=== PATIENT | female | born 1955 | race Caucasian/White ===

== ENCOUNTER 2017-01-01 16:11 | Emergency (ER) | payer SELFPAY ==
[2017-01-01 16:19] VITALS: BP 140/85; PULSE 70; RESP 16; O2SAT 100
--- NOTE | 2017-01-01 17:57 | ED.REPORT ---
HPI-Extremity Problem Upper Date of Service Jan 01, 2017 ED Provider: Terence Sands MD 61 year old female with no significant past medical history presents to the ER with L arm pain/swelling onset 4 days ago at 1730 following a fall. Pt states that she was at the fridge when she stood up quickly, became lightheaded and fell backwards on her L elbow. Since then she has noticed increased bruising and swelling. The swelling has increased to the L hand. She only reports mild pain and has been able to move the L arm with minimal pain. She has minimal paresthesias to the arm which she has been icing. No LOC or head trauma. Pt has had no falls since. Pt denies vomiting, diarrhea, fever, chills, CP and SOB. Nursing Notes Stated Complaint: LEFT ARM SWELLING/INJURY Chief Complaint: General Complaint Nursing Notes Reviewed: Yes Allergies: Uncoded Allergies: ASPRIN (Allergy, Mild, epistaxs, 01/01/17) Scheduled PRN Hydrocodone-Acetaminophen 5-325 mg (Hydrocodone-Acetaminophen 5-325 mg) 1 Each Tablet 1 TABLET PO Q4H PRN PRN For Pain General Time Seen by MD: 17:54 Chief Complaint Elbow injury left Hx Obtained From: Patient Arrived By: Walk-in Onset Occurred: 4 days ago Symptom Duration: Since onset Location: : Elbow left Quality: Painful Severity: Current: Mild Associated with: Reports: Swelling, Denies: Loss of consciousness, Unable to move joint Past Medical History Past Medical History denies Denies: Diabetes mellitus, Hypertension Past Surgical History denies Smoking History Unknown if Ever Smoker Social History Alcohol Use: "Social" Other Social History: Smokeless tobacco Review of Systems Basic Review of Systems Eyes: Vision NL, No discharge ENT: Hearing NL, No pain, No nasal congestion, No pharyngeal pain Respiratory: No shortness of breath, No cough, No wheeze Cardiovascular: No chest pain, No dyspnea on exertion, No orthopnea, No parox noct dyspnea, No palpitations GI: No abdominal pain, No anorexia, No nausea, No vomiting Psychiatric: Normal thought content Constitutional: Denies: Chills, Fever Musculoskeletal: Reports: Joint pain, Joint swelling, Denies: Neck pain Skin: Reports Bruising, Reports Swelling Neurologic: Reports: Lightheaded, Denies: Change LOC, Headache, Numbness, Weakness Complete sys rev & neg: except as marked. Physical Exam Initial Vital Signs Vital Signs (First) Date Time Temp Pulse Resp B/P Pulse Ox O2 Delivery O2 Flow Rate FiO2 01/01/17 16:19 36.5 70 16 140/85 100 Room Air Initial VS: Reviewed ENT: Conjunctiva normal, No scleral icterus Abdomen / GI: Soft, Non-tender Lower Extremities: Vascular intact, Neuro intact, No swelling, No tenderness (Atraumatic) Psychiatric: Mood/affect normal, Behavior normal, Normal thought content General/Constitutional: Awake, Alert, Cooperative Neck: Atraumatic, Supple, Full range of motion, No midline vertebral tend (No deformity ) Respiratory / Chest: Breath sounds NL, Breath sounds = bilat, No respiratory distress, No rales, No rhonchi, No wheezing Cardiovascular: Heart rate NL, Regular rhythm, Heart sounds NL, No gallop, No murmurs, No rubs, Cap refill not delayed, Peripheral circulation NL (radial) RUE atraumatic, LUE significant ecchymosis of L elbow. Superficial abrasion but otherwise skin is intact. Significant edema involving entire left elbow toward L forearm. Appears to be in process of resolving. FROM of fingers. Strong radial pulses. Good strength to L hand and forearm. Compartments nl. Sensation nl. No tenderness or deformity to hand, forearm, elbow or upper arm. Skin: Warm, Dry Neurologic: Oriented X3, Speech NL, No motor deficits, No sensory deficits Head / Eyes: Atraumatic (No signs of trauma to head, face or scalp), Normocephalic, PERRL Interpretation & Diagnostics Lab Results Interpretation Result Diagram: 01/01/17181801/01/171818 Test 01/01/17 18:19 White Blood Count 6.6th/mm3 (3.8-10.1) Red Blood Count 3.89mil/mm3 (3.90-5.20) Hemoglobin 12.4g/dL (12.0-15.6) Hematocrit 37.4% (35.0-46.0) Mean Corpuscular Volume 96.1fL (81-100) Mean Corpuscular Hemoglobin 31.9pg (27.0-35.0) Mean Corpuscular Hemoglobin Concent 33.2% (32.0-37.0) Red Cell Distribution Width 12.1% (12.3-15.4) Platelet Count 162bil/L (150-400) Neutrophils (%) (Auto) 58.1% (40-74) Lymphocytes (%) (Auto) 23.4% (14-46) Monocytes (%) (Auto) 13.9% (4-12) Eosinophils (%) (Auto) 4.1% (0-5) Basophils (%) (Auto) 0.3% (0-3) Sodium Level 140mEq/L (134-144) Potassium Level 4.7mEq/L (3.5-5.2) Chloride Level 103mEq/L (97-108) Carbon Dioxide Level 23mmol/L (18-29) Blood Urea Nitrogen 19mg/dL (8-27) Creatinine 0.64mg/dL (0.57-1.00) Estimat Glomerular Filtration Rate 135mL/min (>59) Glucose Level 102mg/dL (60-99) Calcium Level 9.5mg/dL (8.5-10.1) Magnesium Level 2.3mg/dL (1.6-2.6) Total Bilirubin 0.3mg/dL (0.0-1.2) Aspartate Amino Transf (AST/SGOT) 27U/L (0-50) Alanine Aminotransferase (ALT/SGPT) 25U/L (0-32) Alkaline Phosphatase 64U/L (25-165) Troponin T < 0.010ug/L (0.0-0.011) Pro-B-Type Natriuretic Peptide 61.35pg/mL (0-287) Total Protein 6.9g/dL (6.4-8.4) Albumin 4.2g/dL (3.4-5.0) Lipase 29U/L (13-60) Hold Oneil Top Tube Received (Received) General Lab Results Interp 1: Labs reviewed ECG Interpretation Time: 18:18 Interpreted by: ED physician Normal ECG Interpretation: Normal rate (64), Normal sinus rhythm, No acute ischemic changes, Normal axis, Normal intervals X-Ray Interpretation Xray Interpretation: IMPRESSION: 1. Mildly comminuted, distracted, intra-articular fracture of the proximal ulna. Dictated by: Connor Crowell M.D. on 01/01/2017 at 19:46 X-Ray Ordered: Elbow left Interpretation / Wet Read by: Interpret - Radiologist Procedures Splint Application - Fx Mgt Time: 20:10 Procedure Performed by: Test Engineering Manager Precise Anatomic Location: L elbow- long arm posterior splint Definitive Fracture Care: Pain control Post-Procedure / Complications: Cap refill normal, Post splint vascular nl, Post splint neuro nl, Condition improved, Tolerated procedure well, Patient stable Splint Post-Application Eval Extremity Condition: Cap refill < 2 sec, Distal sensation intact, Distal motor Intact, No compartment syndrome Re-Eval/Medical Decision Med Decision/Clinical Course 61 year old female with no significant past medical history presents to the ER with L arm pain/swelling onset 4 days ago at 1730 following a fall. Pt states that she was at the fridge when she stood up quickly, became lightheaded and fell backwards on her L elbow. Since then she has noticed increased bruising and swelling. The swelling has increased to the L hand. She only reports mild pain and has been able to move the L arm with minimal pain. She has minimal paresthesias to the arm which she has been icing. No LOC or head trauma. Pt has had no falls since. Pt denies vomiting, diarrhea, fever, chills, CP and SOB. Here in the emergency department the patient is afebrile stable vital signs examination as above. EKG was obtained interpreted by myself as documented above. L elbow x-ray 1. Mildly comminuted, distracted, intra-articular fracture of the proximal ulna. CBC and CMP unremarkable Troponin negative Overall presentation most consistent with orthostatic syncopal event. No evidence of arrhythmia, seizure or lateralizing neurologic deficit suggestive of mass lesion. Patient did not strike her head and there is no evidence on exam of head trauma. I do not feel that neuro imaging is indicated. Patient is neurovascularly intact in her left arm though has left elbow fracture as described above. This was reviewed with on-call orthopedic surgeon Dr. Klein who agreed with plan for long-arm posterior splint, placement of sling and follow-up in orthopedic surgery clinic. Splint was placed and patient remained neurologically intact distal to the injury. She was provided with a sling for comfort. She is referred to orthopedic surgery and will arrange for follow-up tomorrow.Prior to discharge follow-up and return precautions were reviewed in detail with the patient who verbalized understanding and agreement with the plan. The patient was discharged in stable condition. Re-Evaluation/Progress : Time of Eval: 20:45 Re-Evaluation/Progress Note: Informed pt of imaging results. Discussed plan for discharge and follow up. All questions addressed. Consultation : Referral / Consult Name: Musa Klein MD Consulted With: Orthopedic Call Returned at: 20:35 Obstetrical Tech: Will see in office Counseled Regarding: Diagnosis, Lab results, Need for follow-up, When/why to return to ED Discharge & Departure Impression: Primary Impression: Left elbow fracture Encounter type: initial encounter Fracture type: closed Qualified Code: S42.402A - Unspecified fracture of lower end of left humerus, initial encounter for closed fracture Additional Impressions: Orthostatic syncope Dehydration Traumatic ecchymosis of elbow Encounter type: initial encounter Laterality: left Qualified Code: S50.02XA - Contusion of left elbow, initial encounter Disposition: Home Discharge Condition All VS Reviewed: Yes Condition: Improved Additional Instructions: Thank you for seeking care at [facility] emergency room. You have been diagnosed with a left elbow fracture. Please remain in splint and use sling for comfort. You may take pain medications as prescribed. Our primary goal today in the ED was to evaluate you for any life-threatening conditions. Your evaluation was reassuring. Please call orthopedic surgeons first thing tomorrow morning to arrange for a follow-up appointment. You should return to the ED immediately if you develop increased swelling, pain , numbness, tingling, fevers, vomiting, cough, shortness of breath, chest pain, lightheadedness, weakness or any other concerning signs or symptoms. This should improve in the next few weeks. Thank you for letting us partake in your care today. NARCOTIC INSTRUCTIONS (this will be added to the dc instructions) You have been prescribed a narcotic for pain relief. These drugs are usually combined with acetaminophen (Tylenol#3, Percocet, Darvocet, Anexsia, Vicodin) or aspirin (Empirin#3, Percodan, Synalogs-DC) for increased effect. Narcotics act on the central nervous system to reduce pain; they also impair mental alertness and physical abilities. We advise you not to drink alcohol, drive a car, or operate dangerous equipment when you are taking theses drugs. You can lessen stomach irritation from your medicine by taking it with meals or a full glass of water. Common side effects of narcotics are: Nausea and vomiting, heartburn, consitpation, dizziness, sleepiness, and mood changes. If you have bothersome side effects or symptoms of an allergic reaction (itching, hives, rash), stop taking your medicine and call your doctor or the emergency room right away. Please keep your narcotic medicine well out of the reach of children. Referrals: Al Beard MD (PCP) Musa Klein MD [place] Attestation Portions of this note were transcribed by Becky Cheng. I, (Dr. Terence Sands ) personally performed the history, physical exam and medical decision-making; I reviewed and confirmed the accuracy of the information in the transcribed note. Signed by: Becky Cheng. [place], 01/01/20172028 copies to: Musa Klein MD; Al Beard MD, Beck O MD Jan 01, 2017 17:56 Becyk Cheng Jan 01, 2017 18:38
[2017-01-01 18:31] LABS: BASOPHILS % (AUTO) 0.3 % (0-3); EOSINOPHILS % (AUTO) 4.1 % (0-5); MONOCYTES % (AUTO) 13.9 % (4-12); Mean Corpuscular Hemoglobin 31.9 pg (27.0-35.0); Mean Corpuscular Volume 96.1 fL (81-100); NEUTROPHILS % (AUTO) 58.1 % (40-74); Platelet Count 162 bil/L (150-400)
[2017-01-01 18:54] LABS: TROPONIN T < 0.010 ug/L (0.0-0.011)
[2017-01-01 19:01] VITALS: BP 160/89; PULSE 61; RESP 17; O2SAT 97
[2017-01-01 19:04] LABS: Lipase 29 U/L (13-60); Magnesium 2.3 mg/dL (1.6-2.6)
--- NOTE | 2017-01-01 19:49 | DRSVH ---
PROCEDURE: X-RAY LEFT ELBOW COMPLETE, MINIMUM THREE VIEWS ([id number]) INDICATIONS: trauma TECHNIQUE: 3 views of the elbow were acquired. COMPARISON: None. FINDINGS: Bones: There is a mildly comminuted fracture through the olecranon of the proximal ulna extending to the elbow joint. There is distraction of the fracture components by approximately 2 cm. Radius and distal humerus appear intact. Soft tissues: There is an elbow joint effusion. No suspicious soft tissue calcifications. IMPRESSION: 1. Mildly comminuted, distracted, intra-articular fracture of the proximal ulna. Dictated by: Connor Crowell M.D. on 01/01/2017 at 19:46 Approved by: Connor Crowell M.D. on 01/01/2017 at 19:48
[2017-01-01] MEDS ORDERED: HYDR-4003 PO (20:38)
[2017-01-01 20:54] VITALS: BP 168/94; PULSE 61; O2SAT 97
== END 2017-01-01 20:15 | disposition home or self-care (01) ==
LOC: SED 16:11
DX: S42.402A Unspecified fracture of lower end of left humerus, initial encounter for closed fracture (principal); S50.02XA Contusion of left elbow, initial encounter; R55 Syncope and collapse; E86.0 Dehydration; W18.09XA Striking against other object with subsequent fall, initial encounter; Y93.89 Activity, other specified; Y99.8 Other external cause status; Y92.9 Unspecified place or not applicable; Z88.6 Allergy status to analgesic agent

== ENCOUNTER 2017-01-08 13:11 | Day surgery (SDC) | payer SELFPAY ==
[~2017-01-08] VITALS: Ht 162.6 cm; Wt 64.8 kg
[2017-01-08] VITALS (18 sets, daily range): BP systolic 129–185; BP diastolic 82–100; PULSE 63–102; RESP 12–21; O2SAT 95–100
--- NOTE | 2017-01-08 07:17 | PCM.HPANE ---
Patient Data Surgeon Admitting Provider: Attending Provider:Shawn Silverman MD Primary Care Physician:Al Beard MD Other Provider:[facility] Reason for Visit Left Olecranon Fracture Ht/WT & BMI Height (Feet): 5 Height (Inches): 4 Weight (Kilograms): 64.86 Body Mass Index 24.00 Allergies Coded Allergies: aspirin (Verified Allergy, Unknown, 01/08/17) Past Anesthesia History Anesthesia History: Denies:: Anesthesia Reactions Diabetes History Hx Diabetes?: No Medications Hypertension Medication: No Home Meds Incl Beta Natalio: No Active Scripts Hydrocodone-Acetaminophen 5-325 mg 1 Each Tablet1 Tablet PO Q4H PRN For Pain # 20 TABLET Prov:Terence Sands MD 01/01/17 History History of ENT Problems?: No Hx of Heart Problems?: No Cardiovascular History: Denies:: Congestive Heart Failure Hypertension Hx of Respiratory Problem?: No Respiratory History: Denies:: Oxygen Administration Tuberculosis Use of C-PAP Machine Hx Neurologic Problems?: Yes Neurological History: Positive for:: Dizziness (lightheaded- fall led to current injury 12/2016) Denies:: Multiple Sclerosis Parkinson's Disease Seizures Hx of GI Problems?: No Hx of Problems?: No Female Hx: Denies:: Currently Hx Musculoskeletal Problems?: Yes Musculoskeletal History: Positive for:: Musculoskeletal Trauma (left olecranon current admission injury) Hx Surgeries?: No Hx Any Other Health Problems?: Yes Other History: Denies:: Cancer Hx Diabetes: No Hx Alcohol Use: YesHx Substance Use: No Smoking Status: Unknown if Ever Smoker Have You Smoked inLast 12 mo: No Stop/Bang P-Blood Pressure: treated: No B- Body Mass Index > 35 kg/m2: No A- Age over 50: Yes N- Neck Large Circumference: No G- Gender Male: No SHRUTI Risk Assessment: Low Risk, <3 Yes Risk Assessment Category Category 1A: Patient has history of documented sleep apnea, and HAS NOT received any narcotic, sedative or anesthesia administration during this stay. Category 1B: Patient has history of documented sleep apnea, and HAS received any narcotic , sedative or anesthesia administration during this stay Category 2: Patient has SUSPECTED Obstructive Sleep Apnea, and HAS received any narcotic , sedative or anesthesia administration during this stay. Category 3: Patient has SUSPECTED Obstructive Sleep Apnea and HAS NOT received narcotic, sedative or anesthesia administration during this stay. Category 4: Outpatient in Procedural Areas with known sleep apnea or who screen positive for High Risk via the STOP/BANG questionnaire. Exam Exam General Appearance: Alert, Oriented X3, Cooperative, No Acute Distress HEENT/AIRWAY: MP 1, Neck Movement (FROM), Mouth Opening (3FB) Lungs: Normal Air Movement Heart: Exam Unremarkable Plan Impression Patient chart reviewed, patient interviewed and anesthestic plan with risks, benefits, and alternatives discussed, and informed consent obtained. ASA Physical Status: ASA1 Normal Healthy Anesthetic Plan: GA Bene/Risks/Altern/Consents: Yes HP Complete Prior to Induction: Yes Beto Aguayo MD Jan 08, 2017 07:17
[~2017-01-08 13:11] MED LIST: CeFAZolin 2 Gm/50 mL D5W IV Premix IV ONE; HYDR-4003 PO
[2017-01-08] MEDS ORDERED: HYDROmorphone 2 mg/mL Inj ONE (13:12)
[2017-01-08] MEDS ORDERED: fentaNYL-PF 50 mCg/mL 2 mL Inj ONE (13:12)
[2017-01-08] MEDS ORDERED: Ondansetron 2 mg/mL 2 mL Inj ONE (13:12)
[2017-01-08] MEDS ORDERED: Propofol 10,000 mCg/mL 20 mL Inj ONE (13:12)
[2017-01-08] MEDS ORDERED: Dexamethasone 4 mg/mL Inj ONE (13:12)
[2017-01-08] MEDS: Lactated Ringer's 1,000 ML IV SCH ×2 (13:24→15:50)
[2017-01-08] MEDS ORDERED: CeFAZolin Inj 2 gm / 50mL D5W IV ONE (13:37)
[2017-01-08] MEDS ORDERED: Ketorolac 15 mg/mL Inj IVPUSH ONE (15:05)
--- NOTE | 2017-01-08 15:13 | PCM.ORTHOP ---
Orthopedic Operative Report Date of Service: Jan 08, 2017 Pre Operative Diagnosis Left closed olecranon intra-articular, comminuted fracture Post Operative Diagnosis Same Procedure Left olecranon open reduction internal fixation Surgeon Surgeon: Shawn Silverman MD Assistants: Liasndro Chambers Indication for Procedure Left olecranon fracture Findings Per dictation Details of Procedure Estimated Blood Loss: 25 mL Implant: 3.5 mm Synthes olecranon plate Indications: The patient is Brittanie Lowe who is a 61-year-old female status- post left closed comminuted, intraarticular olecranon fracture after fall. The risks versus benefits of open reduction and internal fixation were discussed with the patient in detail. The risks described including pain, bleeding, infection, damage to neurovascular structures, failure of procedure, need for further procedures, loss of limb function, loss of limb, heart attack, stroke, and . The patient voiced understanding of the risks and agreed to proceed. Verbal and written consent were obtained. Description of Operation: The patient was brought to the operating room. Patient name and surgical site were confirmed. Preoperative antibiotics were given. General anesthesia was administered. The patient was placed lateral on the operating table. The arm was prepped and draped in the usual sterile fashion. A sterile well padded tourniquet was placed on the upper arm. The arm was exsanguinated and the tourniquet was inflated. A standard posterior approach to the olecranon was performed. All neurovascular structures were identified and protected at all times. The ulnar nerve is identified on the medial border of the triceps and is decompressed from the arcade of [place] to the FCU Aponeurosis. The fracture site was well exposed. The fracture was booked open and cleaned of interposed soft tissue. There were multiple bony pieces in the joint and the proximal aspect of the olecranon was comminuted with a sagittal split. The fracture was reduced under direct visualization and confirmed with fluoroscopy. A synthes olecranon plate was applied to the olecranon after careful elevation of the triceps to allow closer approximation of the plate to bone. The plate was fixed with 3.5 mm fully threaded cortical screws with firm bicortical purchase distally and unicortical locking screws proximally. C-arm and final radiographs confirmed adequate reduction and placement of hardware. The wound was thoroughly irrigated with bulb irrigation. The tourniquet was deflated. Hemostasis was obtained with electrocautery. The skin was closed with interrupted sutures. The incision was cleaned and dressed with Adaptic and gauze. A well-padded plaster posterior splint was applied and wrapped with an yu bandage. Estimated blood loss was 15 cc. There were no immediate complications. The patient patient was transferred to the PACU in stable condition. I was present and scrubbed in for the entire case. Prior to placement of any hardware, all open wounds were thoroughly explored, sharply debrided of contaminated subcutaneous tissue, fascia, muscle and bone, and then irrigated down to bone. Description of Findings: comminuted, osteopenic olecranon fracture Please keep dressing clean dry and intact. Do not remove dressing until follow- up in clinic. Do not weight-bear on the affected extremity. You will follow up in clinic in 10-14 days for suture removal, and placement of new Steri- Strips. You will follow-up with me in clinic with new x-rays at this time. You will follow-up with me at 6 weeks postop and may start weightbearing as tolerated when radiographic healing noted which may take an additional 2-4 weeks. Please keep the affected extremity elevated when possible. You may use ice and/or heat as needed for comfort (preferably ice during the first 48-72 hours). Please feel free to call with any further questions, comments, and/or concerns. You have been given medications for pain, medication for possible constipation which is a side affect of the pain medications. Please keep splint on at all times and do not get wet for the first few weeks. Grafts, Implants: Implants-See Implant Record Complications There were no periprocedural complications identified. Condition Stable Anesthetic Administered: GA Catheters: None Output, Estimated Blood Loss: 25 Blood Admin during surgery: No Surgical Cast or Splint: Long Arm Splint Surgical Specimen Removed: No Specimen sent to Pathology: No copies to: Shawn Silverman MD, Christopher L MD Jan 08, 2017 15:13 Shawn Silverman MD Jan 08, 2017 15:13
[2017-01-08] MEDS ORDERED: Bacitracin 50,000 unit Inj IRRIGATION ONE (16:18)
[2017-01-08] MEDS ORDERED: Ropivacaine-PF 0.5% 30 mL Inj INFILTRATE ONE (16:18)
[2017-01-08] MEDS ORDERED: Lactated Ringer's 1,000 ML IV SCH (16:46)
[2017-01-08] MEDS ORDERED: Lactated Ringer's 500 ML IV PRN (16:46)
[2017-01-08] MEDS ORDERED: Ondansetron 2 mg/mL 2 mL Inj IVPUSH PRN (16:50)
[2017-01-08] MEDS ORDERED: Phenylephrine 10,000 mCg/mL Inj IVPUSH PRN (16:50)
[2017-01-08] MEDS ORDERED: Dexamethasone 4 mg/mL Inj IVPUSH PRN (16:50)
[2017-01-08] MEDS ORDERED: EPHEDrine Sulfate 50 mg/mL Inj IVPUSH PRN (16:50)
[2017-01-08] MEDS ORDERED: Albuterol-Ipratropium 3 mL Inhalation Solution NEB PRN (16:50)
[2017-01-08] MEDS ORDERED: MetoCLOpramide 5 mg/mL 2 mL Inj IVPUSH PRN (16:50)
--- NOTE | 2017-01-08 18:12 | PCM.ANEP1 ---
Post Anesthesia Phase 1 PACU Phase 1 Assessment Date of Service: Jan 08, 2017 Vital Signs see anesthesia record Vital Signs Date Time Temp Pulse Resp B/P Pulse Ox O2 Delivery O2 Flow Rate FiO2 01/08/17 18:05 36.0 77 16 159/98 99 Room Air 01/08/17 13:52 36 75 16 151/83 95 Room Air Anesthetic Administered: GA Level of Alertness: Awake, talking DUTTA's with Equal Strength: Yes Pain: Yes Pain Scale Score: 3 Nausea or Vomiting: No Oxygen Delivery: Room Air Lungs: Normal Air Movement Beto Aguayo MD Jan 08, 2017 18:12
--- NOTE | 2017-01-08 18:13 | PCM.ANEP2 ---
Post Anesthesia Evaluation ASA/CMS Post Anesthesia VS in Patient's Normal Range?: Yes Resp Stable; Airway Patent?: Yes CV Function & Hydration Stable: Yes Mental Status Recovered?: Yes Pain control Satisfactory?: Yes N/V Control Satisfactory?: Yes Beto Aguayo MD Jan 08, 2017 18:13
[2017-01-08] MEDS: fentaNYL-PF 50 mCg/mL 2 mL Inj IVPUSH PRN ×3 (18:18→18:36)
[2017-01-08] MEDS: HYDROmorphone 1 mg/mL Inj IVPUSH PRN ×3 (18:19→18:36)
[2017-01-08] MEDS ORDERED: Acetaminophen IV 1,000 MG in IV Premix 1 EACH IV ONE (18:45)
[2017-01-08] MEDS: HYDROcodone-APAP 5-325 mg Tablet PO PRN ×2 (19:19→19:50)
== END 2017-01-08 23:59 | disposition home or self-care (01) ==
LOC: SAS 13:11
PROVIDERS: ATTEND Orthopaedic Surgery
DX: S52.032A Displaced fracture of olecranon process with intraarticular extension of left ulna, initial encounter for closed fracture (principal); W18.39XA Other fall on same level, initial encounter; Y93.89 Activity, other specified; Y92.9 Unspecified place or not applicable; Z79.82 Long term (current) use of aspirin
CPT/HCPCS: 24685; 76001; C1713; J0690; J1100; J1170; J2250; J2270; J2405; J3010; J7120